=== PATIENT | male | born 1985 | race Caucasian/White ===

== ENCOUNTER 2018-02-02 18:29 | Emergency (ER) | payer BC, OTHER ==
--- NOTE | 2018-02-02 19:12 | RADIOLOGY REPORT (SQ) ---
EXAM DESCRIPTION: CHEST 2 VIEWS COMPLETED DATE/TIME: 02/02/2018 6:51 pm REASON FOR STUDY: CP COMPARISON: 06/09/2015 EXAM PARAMETERS: NUMBER OF VIEWS: two views TECHNIQUE: Digital Frontal and Lateral radiographic views of the chest acquired. RADIATION DOSE: NA LIMITATIONS: none FINDINGS: LUNGS AND PLEURA: No opacities, masses or pneumothorax. No pleural effusion. MEDIASTINUM AND HILAR STRUCTURES: No masses or contour abnormalities. HEART AND VASCULAR STRUCTURES: Heart normal size. No evidence for failure. BONES: No acute findings. HARDWARE: None in the chest. OTHER: No other significant finding. IMPRESSION: NO ACUTE RADIOGRAPHIC FINDING IN THE CHEST. TECHNICAL DOCUMENTATION: JOB ID: [id number] [employer]- All Rights Reserved Reading location - IP/workstation name: [email or web address]
[2018-02-02 20:04] LABS: HEMATOCRIT 43.8 % (37.9-51.0); MEAN CORPUSCULAR HGB CONC 34.3 g/dL (32.0-36.0); MEAN CORPUSCULAR VOLUME 90 fl (80-97); PLATELET COUNT 356 10^3/uL (150-450); RED BLOOD COUNT 4.85 10^6/uL (4.35-5.55); RED CELL DISTRIBUTION WIDTH 13.5 % (11.5-14.0); WHITE BLOOD COUNT 7.5 10^3/uL (4.0-10.5)
[2018-02-02 20:20] LABS: ANION GAP 10 (5-19); BLOOD UREA NITROGEN 15 mg/dL (7-20); CALCIUM 9.7 mg/dL (8.4-10.2); CARBON DIOXIDE 28 mmol/L (22-30); CHLORIDE 105 mmol/L (98-107); GLUCOSE 91 mg/dL (75-110); POTASSIUM 3.9 mmol/L (3.6-5.0); SODIUM 142.8 mmol/L (137-145)
--- NOTE | 2018-02-02 20:53 | EKG REPORT ---
SEVERITY:- BORDERLINE ECG - SINUS RHYTHM NONSPECIFIC ST-T CHANGES- INFERIOR LEADS, UNCHANGED FROM 06/09/15 : Confirmed by: Jae Laughlin MD 02-Feb-2018 20:52:40
--- NOTE | 2018-02-02 21:16 | ER Document Report ---
ED General - General Chief Complaint: Chest Pain Stated Complaint: CHEST PAIN/LEFT ARM NUMBNESS Time Seen by Provider: 02/02/18 19:34 Notes: Patient is a 32-year-old male with a past medical history of morbid obesity, former smoker, who presents with several days of intermittent chest pain. Patient states that the pain as a pressure like sensation in the left side of his chest that does not radiate. He denies any associated nausea, vomiting or diaphoresis. Nothing improves or worsens his symptoms. He states the pain has been mostly constant for the past 12 hours. He does however note that it is not currently present. He has not seen his general doctor regarding today's concerns. He notes a long-standing history of similar symptoms in the past. He has not seen his general doctor regarding today's concerns. He denies any history of DVT or pulmonary embolus. No history of connective tissue disorders. No history of cardiac disease. TRAVEL OUTSIDE OF THE [place] IN LAST 30 DAYS: No - Related Data Allergies/Adverse Reactions: Bees Allergy (Uncoded 02/02/18 18:30) Past Medical History - General Information source: Patient - Social History Smoking Status: Former Smoker Frequency of alcohol use: None Drug Abuse: None Lives with: Alone Family History: Reviewed & Not Pertinent, Malignancy - thyroid Patient has suicidal ideation: No Patient has homicidal ideation: No Renal/ Medical History: Denies: Hx Peritoneal Dialysis GI Medical History: Reports: Hx Gastroesophageal Reflux Disease - Immunizations Hx Diphtheria, Pertussis, Tetanus Vaccination: Yes Review of Systems - Review of Systems Notes: Constitutional: Negative for fever. HENT: Negative for sore throat. Eyes: Negative for visual changes. Cardiovascular: Positive for chest pain. Respiratory: Negative for shortness of breath. Gastrointestinal: Negative for abdominal pain, vomiting or diarrhea. Genitourinary: Negative for dysuria. Musculoskeletal: Negative for back pain. Skin: Negative for rash. Neurological: Negative for headaches, weakness or numbness. 10 point ROS negative except as marked above and in HPI. Physical Exam - Vital signs Vitals: Temp Pulse Resp BP 98.0 F 74 20 142/80 H 02/02/18 18:43 02/02/18 18:43 02/02/18 18:43 02/02/18 18:43 Interpretation: Normal Notes: PHYSICAL EXAMINATION: GENERAL: Well-appearing, well-nourished and in no acute distress. HEAD: Atraumatic, normocephalic. EYES: Pupils equal round and reactive to light, extraocular movements intact, sclera anicteric, conjunctiva are normal. ENT: nares patent, oropharynx clear without exudates. Moist mucous membranes. NECK: Normal range of motion, supple without lymphadenopathy LUNGS: Breath sounds clear to auscultation bilaterally and equal. No wheezes rales or rhonchi. HEART: Regular rate and rhythm without murmurs ABDOMEN: Soft, nontender, normoactive bowel sounds. No guarding, no rebound. No masses appreciated. EXTREMITIES: Normal range of motion, no pitting or edema. No cyanosis. NEUROLOGICAL: No focal neurological deficits. Moves all extremities spontaneously and on command. PSYCH: Normal mood, normal affect. SKIN: Warm, Dry, normal turgor, no rashes or lesions noted. Course - Re-evaluation Re-evalutation: 02/02/18 21:14 Presentation of chest pain in an otherwise well appearing patient. Low clinical suspicion for ACS given clinical history, exam, EKG without ST elevations or depressions, and negative initial troponin. HEART score less than or equal to 3. PE also seems unlikely given clinical history, absence of tachycardia or dyspnea. Patient is PERC criteria negative. CXR without evidence of pneumothorax or pneumonia. No widened mediastinum. Aortic dissection also seems unlikely given history, symmetric pulses, CXR, and vitals. Patient's symptoms have been ongoing for the past several days and I do not believe that repeated serial troponins are indicated given the duration of his symptoms as the initial troponin should already be positive if there is an infarction event that is triggering the patient's pain. Moreover he does not have any significant risk factors for cardiac disease. He denies any pain at the time of my assessment. Overall assessment: Chest pain in a patient without evidence of cardiac or other serious etiology on workup today. I discussed with patient that, based on their age, risk factors and emergency department testing today, the likelihood that their symptoms are related to a heart attack is very low (estimated risk of heart attack or over the next 30 days of less than 2%). The patient demonstrates decision making capacity and has verbalized an understanding of these risks to me. Based on this, the patient has chosen to follow-up as an outpatient. Usual chest pain return precautions reviewed. The patient states understanding and agreement with this plan. - Vital Signs Vital signs: Temp Pulse Resp BP Pulse Ox 98.0 F 74 22 H 138/73 H 97 02/02/18 21:01 02/02/18 18:43 02/02/18 21:01 02/02/18 21:01 02/02/18 21:01 - Laboratory Result Diagrams: 02/02/18 19:47 02/02/18 19:47 - Diagnostic Test Radiology reviewed: Image reviewed, Reports reviewed Radiology results interpreted by me: 02/02/18 21:15 Chest x-ray: No acute infiltrate or pneumothorax - EKG Interpretation by Me Additional EKG results interpreted by me: 02/02/18 21:15 Sinus rhythm. Rate 81. No ST elevations or depressions. QTC is 414. Discharge - Discharge Clinical Impression: Palpitations Chest pain Qualifiers: Chest pain type: unspecified Qualified Code(s): R07.9 - Chest pain, unspecified Condition: Good Disposition: HOME, SELF-CARE Additional Instructions: You were seen today for chest pain. The exact cause of your pain is unclear. However, based on your cardiac enzyme testing, chest x-ray, and EKG it does not appear that it is from an immediately life-threatening cause at this time. Although your testing here is normal is critical that you follow-up with your primary care physician for continued evaluation of this chest pain and possible stress testing. I recommended you see your physician within the next 24-48 hours to be evaluated for consideration of a stress test. Please return to emergency department immediately if you have worsening of your chest pain, shortness of breath, vomiting, become unable to exert yourself due to pain or difficulty breathing, you pass out, or have any pain that radiates into your arms, jaw, or back. Please also return if you have any additional symptoms that are concerning to you. Forms: Return to Work
[2018-02-02 21:21] VITALS: BP 138/73
== END 2018-02-02 21:25 | disposition home or self-care (01) ==
LOC: ER 18:29
DX: R00.2 Palpitations (principal); R07.9 Chest pain, unspecified; E66.01 Morbid (severe) obesity due to excess calories; Z68.41 Body mass index [BMI] 40.0-44.9, adult; Z87.891 Personal history of nicotine dependence
CPT/HCPCS: 36415; 71046; 80048; 84484; 85027; 93005; 93010; 99285

== ENCOUNTER 2018-09-09 17:59 | Emergency (ER) | payer BC ==
[2018-09-09] MEDS ORDERED: ASPIRIN 81 MG TABLET, CHEWABLE PO ONE (20:14)
[2018-09-09] MEDS ORDERED: MORPHINE SULFATE 10 MG/ML INJ IV ONE (20:16)
--- NOTE | 2018-09-09 20:16 | ER Document Report ---
ED Medical Screen (RME) - General Chief Complaint: Chest Pain Stated Complaint: LEG/ARM PAIN Time Seen by Provider: 09/09/18 20:07 Mode of Arrival: Ambulatory Information source: Patient Notes: 33-year-old male presents emergency department with complaints of numbness and tingling to his left leg from the knee down for the last couple of days. He also notes that he is been having a sharp and stabbing sensation in the left chest with associated left arm numbness and tingling that started today. He states his been constant in nature. No alleviating or exacerbating factors. The pain does not radiate. He denies any nausea, vomiting, diaphoresis. Patient denies a history of hypertension, hyperlipidemia, coronary artery disease, family history of coronary artery disease. Patient does smoke. He denies any recent travel recent surgeries, leg pain, leg swelling, history of DVT or PE, hormone use, history of malignancy. I have greeted and performed a rapid initial assessment of this patient. A comprehensive ED assessment and evaluation of the patient, analysis of test results and completion of the medical decision making process will be conducted by additional ED providers. PHYSICAL EXAMINATION: GENERAL: Well-appearing, well-nourished and in no acute distress. HEAD: Atraumatic, normocephalic. EYES: Pupils equal round extraocular movements intact, conjunctiva are normal. ENT: Nares patent NECK: Normal range of motion LUNGS: No respiratory distress Musculoskeletal: Normal range of motion NEUROLOGICAL: Normal speech, normal gait. TRAVEL OUTSIDE OF THE [place] IN LAST 30 DAYS: No - Related Data Allergies/Adverse Reactions: Bees Allergy (Uncoded 02/02/18 18:30) Past Medical History - Social History Chew tobacco use (# tins/day): No Drug Abuse: None Renal/ Medical History: Denies: Hx Peritoneal Dialysis GI Medical History: Reports: Hx Gastroesophageal Reflux Disease - Immunizations Hx Diphtheria, Pertussis, Tetanus Vaccination: Yes Physical Exam - Vital signs Vitals: Temp Pulse Resp BP Pulse Ox 98.6 F 85 16 131/81 H 100 09/09/18 18:15 09/09/18 18:15 09/09/18 18:15 09/09/18 18:15 09/09/18 18:15 Course - Vital Signs Vital signs: Temp Pulse Resp BP Pulse Ox 98.6 F 85 16 131/81 H 100 09/09/18 18:15 09/09/18 18:15 09/09/18 18:15 09/09/18 18:15 09/09/18 18:15
[2018-09-09] MEDS ORDERED: ONDANSETRON HCL INJ/PF 4 MG/2 ML SDV IV ONE (20:40)
[2018-09-09 21:02] LABS: ABSOLUTE EOSINOPHILS # (AUTO) 0.1 10^3/uL (0.0-0.6); ABSOLUTE LYMPHOCYTES (AUTO) 2.2 10^3/uL (0.5-4.7); ABSOLUTE MONOCYTES (AUTO) 0.6 10^3/uL (0.1-1.4); ABSOLUTE NEUT (AUTO) 3.8 10^3/uL (1.7-8.2); BASOPHILS % (AUTO) 0.6 % (0-2); EOSINOPHILS % (AUTO) 1.6 % (0-6); HEMATOCRIT 44.4 % (37.9-51.0); HEMOGLOBIN 15.2 g/dL (13.5-17.0); LYMPHOCYTES % (AUTO) 32.4 % (13-45); MEAN CORPUSCULAR HEMOGLOBIN 31.2 pg (27.0-33.4); MEAN CORPUSCULAR HGB CONC 34.2 g/dL (32.0-36.0); MEAN CORPUSCULAR VOLUME 91 fl (80-97); MONOCYTES % (AUTO) 9.2 % (3-13); PLATELET COUNT 368 10^3/uL (150-450); RED BLOOD COUNT 4.88 10^6/uL (4.35-5.55); RED CELL DISTRIBUTION WIDTH 13.6 % (11.5-14.0); SEGMENTED NEUTROPHILS % (AUTO) 56.2 % (42-78); TOTAL CELLS COUNTED % (AUTO) 100 %; WHITE BLOOD COUNT 6.7 10^3/uL (4.0-10.5)
--- NOTE | 2018-09-09 21:30 | RADIOLOGY REPORT (SQ) ---
EXAM DESCRIPTION: XR CHEST 1 VIEW COMPLETED DATE/TME: 09/09/2018 20:14 CLINICAL HISTORY: 33 years, Male, chest pain COMPARISON: EXAM DESCRIPTION: CLINICAL HISTORY: chest pain COMPARISON: 06/09/2015 FINDINGS: Single view of the chest is submitted. Cardiac silhouette is normal. No focal parenchymal or pleural disease. No acute bony abnormality. There is no significant pulmonary vascular engorgement. IMPRESSION: No evidence of acute cardiopulmonary disease. NUMBER OF VIEWS: TECHNIQUE: LIMITATIONS: None. FINDINGS: IMPRESSION: copyright 2010 [employer]- All Rights Reserved
[2018-09-09 22:18] LABS: ALANINE AMINOTRANSFERASE 38 U/L (21-72); ALBUMIN 4.4 g/dL (3.5-5.0); ALKALINE PHOSPHATASE 59 U/L (38-126); ANION GAP 9 (5-19); ASPARTATE AMINO TRANSFERASE 26 U/L (17-59); BILIRUBIN,DIRECT 0.3 mg/dL (0.0-0.4); BILIRUBIN,TOTAL 0.4 mg/dL (0.2-1.3); BLOOD UREA NITROGEN 19 mg/dL (7-20); CALCIUM 9.5 mg/dL (8.4-10.2); CARBON DIOXIDE 28 mmol/L (22-30); CHLORIDE 103 mmol/L (98-107); GLUCOSE 105 mg/dL (75-110); POTASSIUM 4.8 mmol/L (3.6-5.0); SODIUM 139.8 mmol/L (137-145); TOTAL PROTEIN 7.3 g/dL (6.3-8.2)
--- NOTE | 2018-09-09 23:03 | ER Document Report ---
ED General - General Chief Complaint: Chest Pain Stated Complaint: LEG/ARM PAIN Time Seen by Provider: 09/09/18 20:07 Mode of Arrival: Ambulatory TRAVEL OUTSIDE OF THE [place] IN LAST 30 DAYS: No - HPI Notes: Presents to emerge department for evaluation. He states first he had left lower extremity numbness from the knee down. He states it is similar to when he had lower back problems in the past. He stated he became concerned when he started having left upper extremity numbness. He had some associated sharp chest pains as well. He has had these chest pains multiple times in the past. He states he has had extensive cardiac workup and this was found to be negative. He does have risk factors. He denies any bowel or bladder incontinence. No saddle anesthesia. No focal numbness or weakness. He believes however that his left lower extremity numbness is secondary to his back. He asks if he should see a chiropractor. - Related Data Allergies/Adverse Reactions: Bees Allergy (Uncoded 02/02/18 18:30) Past Medical History - General Information source: Patient - Social History Smoking Status: Current Some Day Smoker Chew tobacco use (# tins/day): No Drug Abuse: None Family History: CAD, Malignancy - thyroid Patient has suicidal ideation: No Patient has homicidal ideation: No Renal/ Medical History: Denies: Hx Peritoneal Dialysis GI Medical History: Reports: Hx Gastroesophageal Reflux Disease - Immunizations Hx Diphtheria, Pertussis, Tetanus Vaccination: Yes Review of Systems - Review of Systems Constitutional: No symptoms reported EENT: No symptoms reported Cardiovascular: See HPI Respiratory: No symptoms reported Gastrointestinal: No symptoms reported Musculoskeletal: See HPI Skin: No symptoms reported Neurological/Psychological: Numbness Physical Exam - Vital signs Vitals: Temp Pulse Resp BP Pulse Ox 98.6 F 85 16 131/81 H 100 09/09/18 18:15 09/09/18 18:15 09/09/18 18:15 09/09/18 18:15 09/09/18 18:15 Interpretation: Normal - Notes Notes: Patient is seen and examined. Head is normocephalic and atraumatic. Pupils equal round reactive to light. Oral mucosa is moist. Heart is regular rate and rhythm. Lungs clear to auscultation bilaterally. Abdomen is soft nontender with normoactive bowel sounds. Examination of the spine is no midline tenderness or step-off. No paraspinal musculature tenderness is appreciated. Negative straight leg raise bilaterally. Strength is plus 5 out of 5 bilateral lower extremities. Patellar and Achilles reflexes are mildly diminished but symmetrical. Examination of left upper extremity is neurovascularly intact. Radial pulses 2+. Sensation intact, capillary refill brisk. Course - Re-evaluation Re-evalutation: 09/09/18 23:02 The above-mentioned symptoms. His chest pain does not seem typical of anginal type pain. I do not have a clear etiology for his paresthesias. Certainly is reasonable to think in this gentleman that it is radicular in nature. We will send him home on anti-inflammatories. He is to follow-up with primary care, return to the ED with worsening or new concerning symptoms of any sort. - Vital Signs Vital signs: Temp Pulse Resp BP Pulse Ox 98.6 F 85 14 119/76 97 09/09/18 18:15 09/09/18 18:15 09/09/18 21:02 09/09/18 21:02 09/09/18 21:02 - Laboratory Result Diagrams: 09/09/18 20:44 09/09/18 21:49 - Diagnostic Test Radiology reviewed: Reports reviewed - EKG Interpretation by Me Additional EKG results interpreted by me: 09/09/18 23:01 Sinus mechanism with a rate of 75 bpm. Normal axis and intervals. No acute ST changes concerning for ischemia or infarction. Discharge - Discharge Clinical Impression: Left leg paresthesias, Paresthesia of arm Chest pain Qualifiers: Chest pain type: unspecified Qualified Code(s): R07.9 - Chest pain, unspecified Condition: Good Disposition: HOME, SELF-CARE Instructions: Chest Pain of Unclear Cause ([facility]) Additional Instructions: No clear cause was found for your numbness and tingling today. Follow-up with your doctor this week. Take medication as prescribed with food. Return to the emergency department with worsening or new concerning symptoms.
--- NOTE | 2018-09-09 23:18 | EKG REPORT ---
SEVERITY:- NORMAL ECG - SINUS RHYTHM : Confirmed by: Kimberly Cuevas MD 09-Sep-2018 23:18:00
[2018-09-09 23:36] VITALS: BP 134/89
== END 2018-09-09 23:44 | disposition home or self-care (01) ==
LOC: ER 17:59
DX: R07.9 Chest pain, unspecified (principal); R20.2 Paresthesia of skin; M79.605 Pain in left leg; F17.200 Nicotine dependence, unspecified, uncomplicated
CPT/HCPCS: 93005; 99284; 96374; 96375; 36415; 85025; 80053; 84484; 71045; 93010; J2270; J2405